=== PATIENT | male | born 1975 | race Caucasian/White ===

== ENCOUNTER 2021-01-27 18:48 | Emergency (ER) | payer SELFPAY ==
[~2021-01-27] VITALS: Ht 170.2 cm; Wt 104.3 kg
[~2021-01-27 18:48] MED LIST: FAMO20TA10 PO; ONDA-144 PO
[2021-01-27 22:28] VITALS: BP 121/78
== END 2021-01-27 23:40 | disposition home or self-care (01) ==
LOC: ER 18:49
DX: L03.032 Cellulitis of left toe (principal); F17.210 Nicotine dependence, cigarettes, uncomplicated